=== PATIENT | female | born 1930 | race Caucasian/White ===

== ENCOUNTER 2021-03-14 18:46 | Emergency (ER) | payer MEDICARE, OTHER ==
--- NOTE | 2021-03-14 19:00 | ERPHSYRPT ---
- History of Present Illness Time Seen by Provider: 03/14/21 19:00 Source: patient Exam Limitations: no limitations Physician History: This is an 89-year-old thin white woman who has a history of irritable bowel syndrome and presents with multiple episodes of vomiting in the last 24 hours. She does not know why she has had these episodes. She has no shortness of bisi th. She has no chest pain. She has no cough. She does have some burning in her throat and upper esophagus she says because of the multiple times that she has vomited. She always has intermittent diarrhea and that has not changed. She has not had a fever. She has not been around anyone that she knows of that has had viral infection. Timing/Duration: yesterday Severity: moderate Associated Symptoms: nausea, vomiting, loss of appetite, No abdominal pain, No shortness of breath, No chest pain Allergies/Adverse Reactions: No Known Drug Allergies Allergy (Unverified 03/14/21 19:40) Travel Risk - International Travel Have you traveled outside of the country in past 3 weeks: No - Coronavirus Screening Are you exhibiting any of the following symptoms?: No Close contact with a COVID-19 positive Pt in past 14-21 Days: No - Review of Systems Constitutional: No Symptoms Eyes: No Symptoms Ears, Nose, & Throat: No Symptoms Respiratory: No Symptoms Cardiac: No Symptoms Abdominal/Gastrointestinal: Nausea, Vomiting, Appetite Changes, No Abdominal Pain, No Diarrhea Genitourinary Symptoms: No Symptoms Musculoskeletal: No Symptoms Skin: No Symptoms Neurological: No Symptoms Psychological: No Symptoms Endocrine: No Symptoms Hematologic/Lymphatic: No Symptoms Immunological/Allergic: No Symptoms All Other Systems: Reviewed and Negative - Past Medical History Pertinent Past Medical History: Yes - Past Surgical History Past Surgical History: Yes - Nursing Vital Signs Nursing Vital Signs: Initial Vital Signs Temperature 98.8 F 03/14/21 19:17 Pulse Rate 98 H 03/14/21 19:17 Respiratory Rate 19 03/14/21 19:17 Blood Pressure 115/75 03/14/21 19:17 O2 Sat by Pulse Oximetry 98 03/14/21 19:17 Pain Scale Pain Intensity 0 - Physical Exam General Appearance: mild distress, alert, anxiety, thin Eye Exam: PERRL/EOMI, eyes nml inspection Ears, Nose, Throat Exam: normal ENT inspection, moist mucous membranes Neck Exam: normal inspection, non-tender, supple, full range of motion Respiratory Exam: normal breath sounds, lungs clear, airway intact, No chest tenderness, No respiratory distress Cardiovascular Exam: regular rate/rhythm, normal heart sounds, normal peripheral pulses Gastrointestinal/Abdomen Exam: soft, normal bowel sounds, tenderness (Mild generalized to palpation.), No guarding, No rebound Pelvic Exam: not done Rectal Exam: not done Back Exam: normal inspection, normal range of motion, No CVA tenderness, No vertebral tenderness Extremity Exam: normal inspection, normal range of motion, pelvis stable Neurologic Exam: alert, oriented x 3, cooperative, mobile ui developer II-XII nml as tested, normal mood/affect, nml cerebellar function, nml station & gait, sensation nml Skin Exam: normal color, warm, dry Lymphatic Exam: No adenopathy SpO2 Interpretation: normal O2 Delivery: Room Air - Course Nursing assessment & vital signs reviewed: Yes Ordered Tests: Active Orders 24 hr Category Date Time Status EKG-ER Only STAT Care 03/14/21 19:32 Active IV Insertion STAT Care 03/14/21 19:32 Active ABDOMEN AND PELVIS W/0 CONTRAS [CT] Stat Exams 03/14/21 19:32 Taken AMYLASE Stat Lab 03/14/21 20:04 Completed CBC W DIFF Stat Lab 03/14/21 20:04 Completed CMP Stat Lab 03/14/21 20:04 Completed CULTURE,URINE Stat Lab 03/14/21 20:04 Received LIPASE Stat Lab 03/14/21 20:04 Completed Lactic Acid Stat Lab 03/14/21 20:55 Completed TROPONIN Q3H Lab 03/14/21 20:04 Completed TROPONIN Q3H Lab 03/14/21 23:35 Completed TROPONIN Q3H Lab 03/15/21 01:45 Ordered TROPONIN Q3H Lab 03/15/21 04:45 Ordered TROPONIN Q3H Lab 03/15/21 07:45 Ordered UA W/RFX UR CULTURE Stat Lab 03/14/21 20:04 Completed Medication Summary Discontinued Medications Generic Name Dose Route Start Last Admin Trade Name Freq PRN Reason Stop Dose Admin Sodium Chloride 1,000 mls @ 999 mls/hr 03/14/21 19:32 03/14/21 19:50 Sodium Chloride 0.9% 1000 Ml IV 03/14/21 20:32 999 mls/hr .Q1H1M STA Administration Sodium Chloride Confirm 03/14/21 19:44 Sodium Chloride 0.9% 1000 Ml Administered 03/14/21 19:45 Dose 1,000 mls @ ud .ROUTE .STK-MED ONE Ondansetron HCl 4 mg 03/14/21 19:32 03/14/21 19:51 Zofran 4 Mg/2 Ml Vial IV 03/14/21 19:33 4 mg STAT ONE Administration Ondansetron HCl Confirm 03/14/21 19:43 Zofran 4 Mg/2 Ml Vial Administered 03/14/21 19:44 Dose 4 mg .ROUTE .STK-MED ONE Pantoprazole Sodium 40 mg 03/14/21 19:32 03/14/21 19:53 Protonix 40 Mg Iv IV 03/14/21 19:33 40 mg STAT ONE Administration Pantoprazole Sodium Confirm 03/14/21 19:44 Protonix 40 Mg Iv Administered 03/14/21 19:45 Dose 40 mg IV .STK-MED ONE Prochlorperazine Edisylate 5 mg 03/14/21 23:54 03/15/21 00:03 Compazine 10 Mg/2 Ml IV 03/14/21 23:55 5 mg STAT ONE Administration Prochlorperazine Edisylate Confirm 03/15/21 00:02 Compazine 10 Mg/2 Ml Administered 03/15/21 00:03 Dose 10 mg .ROUTE .STK-MED ONE Lab/Rad Data: Laboratory Result Diagrams 03/14/21 20:04 03/14/21 20:04 Laboratory Results 03/14/21 03/14/21 03/14/21 Range/Units 23:35 20:55 20:04 WBC (4.0-10.5) K/mm3 RBC (4.1-5.4) M/mm3 Hgb (12.0-16.0) gm/dl Hct (35-47) % MCV (78-100) fl MCH (26-32) pg MCHC (32-36) g/dl RDW (11.5-14.0) % Plt Count (150-450) K/mm3 MPV (7.5-11.0) fl Gran % (36.0-66.0) % Eos # (Auto) (0-0.5) Absolute Lymphs (auto) (1.0-4.6) Absolute Monos (auto) (0.0-1.3) Lymphocytes % (24.0-44.0) % Monocytes % (0.0-12.0) % Eosinophils % (0.00-5.0) % Basophils % (0.0-0.4) % Absolute Granulocytes (1.4-6.9) Basophils # (0-0.4) Sodium (137-145) mmol/L Potassium (3.5-5.1) mmol/L Chloride (98-107) mmol/L Carbon Dioxide (22-30) mmol/L Anion Gap (5-15) MEQ/L BUN (7-17) mg/dL Creatinine (0.52-1.04) mg/dL Estimated GFR ML/MIN Glucose (74-106) mg/dL Lactic Acid 1.7 (0.4-2.0) Calcium (8.4-10.2) mg/dL Total Bilirubin (0.2-1.3) mg/dL AST (14-36) U/L ALT (0-35) U/L Alkaline Phosphatase (38-126) U/L Troponin I < 0.012 < 0.012 (0.000-0.034) ng/mL Serum Total Protein (6.3-8.2) g/dL Albumin (3.5-5.0) g/dL Amylase (30-110) U/L Lipase (23-300) U/L Urine Color (YELLOW) Urine Appearance (CLEAR) Urine pH (5-6) Ur Specific Beaman (1.005-1.025) Urine Protein (Negative) Urine Ketones (NEGATIVE) Urine Blood (0-5) Wesly/ul Urine Nitrite (NEGATIVE) Urine Bilirubin (NEGATIVE) Urine Urobilinogen (0-1) mg/dL Ur Leukocyte Esterase (NEGATIVE) Urine WBC (Auto) (0-5) /HPF Urine RBC (Auto) (0-2) /HPF U Epithel Cells (Auto) (FEW) /HPF Urine Bacteria (Auto) (NEGATIVE) /HPF Urine Mucus (Auto) (NEGATIVE) /HPF Urine Culture Reflexed (NO) Urine Glucose (NEGATIVE) mg/dL 03/14/21 03/14/21 03/14/21 Range/Units 20:04 20:04 20:04 WBC 9.3 (4.0-10.5) K/mm3 RBC 3.98 L (4.1-5.4) M/mm3 Hgb 13.1 (12.0-16.0) gm/dl Hct 39.9 (35-47) % MCV 100.3 H (78-100) fl MCH 32.9 H (26-32) pg MCHC 32.8 (32-36) g/dl RDW 14.4 H (11.5-14.0) % Plt Count 219 (150-450) K/mm3 MPV 10.0 (7.5-11.0) fl Gran % 72.9 H (36.0-66.0) % Eos # (Auto) 0.03 (0-0.5) Absolute Lymphs (auto) 1.49 (1.0-4.6) Absolute Monos (auto) 0.98 (0.0-1.3) Lymphocytes % 16.0 L (24.0-44.0) % Monocytes % 10.5 (0.0-12.0) % Eosinophils % 0.3 (0.00-5.0) % Basophils % 0.3 (0.0-0.4) % Absolute Granulocytes 6.76 (1.4-6.9) Basophils # 0.03 (0-0.4) Sodium 141 (137-145) mmol/L Potassium 3.8 (3.5-5.1) mmol/L Chloride 105 (98-107) mmol/L Carbon Dioxide 24 (22-30) mmol/L Anion Gap 16.1 H (5-15) MEQ/L BUN 16 (7-17) mg/dL Creatinine 0.69 (0.52-1.04) mg/dL Estimated GFR > 60.0 ML/MIN Glucose 109 H (74-106) mg/dL Lactic Acid (0.4-2.0) Calcium 9.6 (8.4-10.2) mg/dL Total Bilirubin 0.80 (0.2-1.3) mg/dL AST 41 H (14-36) U/L ALT 26 (0-35) U/L Alkaline Phosphatase 67 (38-126) U/L Troponin I (0.000-0.034) ng/mL Serum Total Protein 7.7 (6.3-8.2) g/dL Albumin 4.7 (3.5-5.0) g/dL Amylase 86 (30-110) U/L Lipase 65 (23-300) U/L Urine Color YELLOW (YELLOW) Urine Appearance SLIGHTLY CLOUDY (CLEAR) Urine pH 5.0 (5-6) Ur Specific Beaman 1.018 (1.005-1.025) Urine Protein NEGATIVE (Negative) Urine Ketones SMALL (NEGATIVE) Urine Blood NEGATIVE (0-5) Wesly/ul Urine Nitrite POSITIVE (NEGATIVE) Urine Bilirubin NEGATIVE (NEGATIVE) Urine Urobilinogen NEGATIVE (0-1) mg/dL Ur Leukocyte Esterase LARGE (NEGATIVE) Urine WBC (Auto) 16-25 (0-5) /HPF Urine RBC (Auto) 0-2 (0-2) /HPF U Epithel Cells (Auto) NONE (FEW) /HPF Urine Bacteria (Auto) MANY (NEGATIVE) /HPF Urine Mucus (Auto) SLIGHT (NEGATIVE) /HPF Urine Culture Reflexed YES (NO) Urine Glucose NEGATIVE (NEGATIVE) mg/dL - Progress Progress: improved, pain not gone completely Progress Note: 03/14/21 20:55 CAT scan of the abdomen pelvis without contrast shows moderate scattered vascular calcifications, osteopenia, multilevel DDD, moderate double curvature or scoliosis. The remaining A/P is negative Counseled pt/family regarding: lab results, diagnosis, need for follow-up, rad results - Departure Departure Disposition: Home Clinical Impression: Nausea, Urinary tract infection Condition: Stable Critical Care Time: No Referrals: NICHOL MERCEDES [Primary Care Provider] - Additional Instructions: Plenty of fluids. Take your medication as prescribed. Follow-up with your primary prescribing physician for further management. Prescriptions: Ondansetron ODT 4 MG [Zofran Odt 4 mg] 4 mg PO Q6H PRN PRN #10 tablet PRN Reason: Vomiting Ciprofloxacin [Cipro 500 MG] 500 mg PO BID #14 tablet
[2021-03-14] MEDS ORDERED: Zofran 4 MG/2 ML VIAL IV ONE (19:32)
[2021-03-14] MEDS ORDERED: Sodium Chloride 0.9% 1000 ML 1,000 ML IV STA (19:32)
[2021-03-14] MEDS ORDERED: PROTONIX 40 MG IV IV ONE ×2 (19:32→19:44)
[2021-03-14] MEDS ORDERED: Zofran 4 MG/2 ML VIAL ONE (19:43)
[2021-03-14] MEDS ORDERED: Sodium Chloride 0.9% 1000 ML 1,000 ML ONE (19:44)
[2021-03-14 20:23] LABS: Absolute Neutrophil Ct (ANC) 6.76 (1.4-6.9); BASOPHIL % 0.3 % (0.0-0.4); Basophil (Absolute #) 0.03 (0-0.4); Eosinophil % 0.3 % (0.00-5.0); Eosinophil (Absolute #) 0.03 (0-0.5); Hematocrit 39.9 % (35-47); Hemoglobin 13.1 gm/dl (12.0-16.0); Lymphocyte (Absolute #) 1.49 (1.0-4.6); Mean Cell Volume 100.3 fl (78-100); Mean Corpuscular Hemoglobin 32.9 pg (26-32); Mean Corpuscular Hgb Concent. 32.8 g/dl (32-36); Monocyte (Absolute #) 0.98 (0.0-1.3); Monocytes % 10.5 % (0.0-12.0); Neutrophil % 72.9 % (36.0-66.0); Platelet Count 219 K/mm3 (150-450); Red Blood Count 3.98 M/mm3 (4.1-5.4); Red Cell Distribution Width 14.4 % (11.5-14.0); White Blood Count 9.3 K/mm3 (4.0-10.5)
[2021-03-14 20:58] LABS: ALBUMIN 4.7 g/dL (3.5-5.0); ALKALINE PHOSPHATASE 67 U/L (38-126); AMYLASE 86 U/L (30-110); ANION GAP 16.1 MEQ/L (5-15); BLOOD UREA NITROGEN 16 mg/dL (7-17); CHLORIDE 105 mmol/L (98-107); Calcium 9.6 mg/dL (8.4-10.2); Carbon Dioxide 24 mmol/L (22-30); Creatinine 1 0.69 mg/dL (0.52-1.04); EST GLOMERULAR FILTRATION RATE > 60.0 ML/MIN; Glucose 109 mg/dL (74-106); LIPASE 65 U/L (23-300); Potassium 3.8 mmol/L (3.5-5.1); SGOT/AST 41 U/L (14-36); SGPT/ALT 26 U/L (0-35); SODIUM 141 mmol/L (137-145); Total Protein 7.7 g/dL (6.3-8.2)
[2021-03-14] MEDS ORDERED: Compazine 10 MG/2 ML IV ONE (23:54)
[2021-03-15] MEDS ORDERED: Compazine 10 MG/2 ML ONE (00:02)
[2021-03-15 00:46] LABS: Appearance SLIGHTLY CLOUDY (CLEAR); Bacteria MANY /HPF (NEGATIVE); Bilirubin NEGATIVE (NEGATIVE); Blood NEGATIVE Ery/ul (0-5); Glucose NEGATIVE (NEGATIVE); Ketones SMALL (NEGATIVE); Leukocyte Esterase LARGE (NEGATIVE); Mucus SLIGHT /HPF (NEGATIVE); Nitrite POSITIVE (NEGATIVE); Protein,Urine Dip NEGATIVE (Negative); RBC 0-2 /HPF (0-2); Specific Gravity 1.018 (1.005-1.025); Urobilinogen NEGATIVE mg/dL (0-1)
[2021-03-15] MEDS ORDERED: Levofloxacin 500 MG Tablet PO ONE (02:36)
[2021-03-15] MEDS ORDERED: Levofloxacin 500 MG Tablet ONE (02:40)
[2021-03-15 02:56] VITALS: BP 120/54; PULSE 78; O2SAT 96
--- NOTE | 2021-03-15 08:51 | XRAY ---
Indication: Abdomen pain, nausea, and vomiting. Multiple contiguous axial images obtained through the abdomen and pelvis without contrast. Comparison: None Lung bases hyperinflated with minimal subsegmental atelectasis/scarring. No infiltrate or effusion. Heart not enlarged. Noncontrasted stomach and bowel loops appear nonobstructed. Appendix not seen. Minimal sigmoid diverticulosis. Cholecystectomy reported. No free fluid/air. Remaining liver, pancreas, spleen, adrenal glands, kidneys, ureters, bladder, and uterus appear unremarkable for noncontrast exam. Moderate/advanced scattered vascular calcifications. No AAA. Osseous structures intact with osteopenia, mild/moderate multilevel thoracolumbar degenerative spondylosis, and moderate double curvature scoliosis. No ventral or inguinal hernias. Impression: 1. Minimal sigmoid diverticulosis, scattered arteriosclerotic disease, and chronic bony findings. 2. Remaining CT abdomen/pelvis without contrast exam is negative.
== END 2021-03-15 03:20 | disposition home or self-care (01) ==
LOC: ED 18:46
DX: R11.0 Nausea (principal); N39.0 Urinary tract infection, site not specified
CPT/HCPCS: 36000; 36415; 74176; 80053; 81001; 82150; 83605; 83690; 84484; 85025; 87077; 87086; 87186; 93005; 96374; 96375; 99284; J2405; A9270-GY